=== PATIENT | male | born 1960 | race Caucasian/White ===

== ENCOUNTER 2019-07-19 09:57 | Emergency (ER) | payer OTHER ==
--- NOTE | 2019-07-19 09:59 | PDOC ---
History of Present Illness - General Chief Complaint: Pain Stated Complaint: RUQ PAIN, WITH BRUISE Time Seen by Provider: 07/19/19 09:59 - History of Present Illness Initial Comments: 07/19/19 10:36 59yo male with no pmhx other than diverticulitis in the past and diet controlled hld -no meds with RUQ pain x 2 days. States the pain started 2 nights ago. No assoc with food. Denies trauma. States pain assoc with diarrhea yesterday, and then constipation today. Pt states pain is also assoc with nausea , no vomiting. States this AM pain in the RUQ also with bruising. Pain is worse with movement, but denies falls, bumps, injury to the area. States he does drink socially - sometimes 2 drinks, sometimes more. Pt denies cp/sob. Pt with ttp over distal ribs on the R and under R ribs over gallbladder. Neg murphys. No other complaints. No coughing - though states he coughs all the time. Nonproductive cough - quit smoking 1 year ago, but uses e-cig daily. Pt denies cva ttp, denies urinary complaints. Pmhx: diverticulitis Pshx: denies allergies: lactose meds: sleeping pill at night Past History - Past Medical History Allergies/Adverse Reactions: Allergies Allergy/AdvReac Type Severity Reaction Status Date / Time No Known Allergies Allergy Verified 07/19/19 10:29 Home Medications: Ambulatory Orders Lorazepam 2 mg PO HS PRN 07/19/19 traZODone HCL [Trazodone HCl] 100 mg PO HS 07/19/19 Review of Systems - Review of Systems Able to Perform ROS?: Yes Is the patient limited [place] proficient: No Constitutional: No: Chills, Fever HEENTM: No: Nose Pain, Throat Pain Respiratory: Yes: Cough. No: Shortness of Breath, Productive cough Cardiac (ROS): No: Chest Pain ABD/GI: Yes: Diarrhea, Nausea, Other (RUQ pain). No: Abdominal Distended, Vomiting, Abdominal cramping : Yes: Flank Pain. No: Burning, Dysuria, Hematuria Musculoskeletal: No: Back Pain Integumentary: Yes: Bruising Neurological: No: Headache, Numbness All Other Systems: Reviewed and Negative *Physical Exam - Vital Signs 07/19/19 10:42 Selected Entries 07/19/19 09:58 Temperature 97.6 F Pulse Rate 62 Respiratory 20 Rate Blood Pressure 119/73 Blood Pressure 88 Mean O2 Sat by Pulse 99 Oximetry (%) Weight 74.843 kg - Physical Exam General Appearance: Yes: Nourished, Appropriately Dressed. No: Apparent Distress HEENT: positive: EOMI, Pharynx Normal Neck: positive: Supple Respiratory/Chest: positive: Lungs Clear, Normal Breath Sounds, Other (11th rib ttp at the tip). negative: Respiratory Distress Cardiovascular: positive: Regular Rhythm, Regular Rate, S1, S2. negative: Edema Gastrointestinal/Abdominal: positive: Normal Bowel Sounds, Tender (RUQ ttp, neg murphys), Soft, Other (bruising to RUQ) Musculoskeletal: positive: Normal Inspection. negative: CVA Tenderness Extremity: positive: Normal Capillary Refill, Normal Inspection, Normal Range of Motion, Other (ambulatory with a steady gait) Integumentary: positive: Dry, Warm, Bruising (RUQ ) Neurologic: positive: Fully Oriented, Alert, Motor Strength 02/09 ED Treatment Course - LABORATORY CBC & Chemistry Diagram: 07/19/19 10:59 07/19/19 11:04 Medical Decision Making - Medical Decision Making 07/19/19 10:43 59yo male with RUQ pain and bruising -denies trauma -bedside ultrasound of the RUQ neg for gallstones or FF in morison's pouch -ttp over distal ribs, pt is coughing -bruising to upper abd -concern for intraabd bleeding not seen on ultrasound vs pancreatitis vs broken rib vs pna -will send labs, cxr, ct abd/pelvis -will hydrate -will give tylenol for pain -will send ua -will monitor and reassess -pt is nontoxic in appearance 07/19/19 10:54 ua neg cxr clear 07/19/19 11:15 no elevated wbc hgb stable inr stable 07/19/19 11:26 mildly elevated bun, ivf hydration running 07/19/19 12:25 pt resting comfortably discussed labs and cxr findings pending ct read and lipase 07/19/19 12:30 lipase neg 07/19/19 12:55 no acute findings on ct discussed ct findings given toradol and feels better discussed tylenol or motrin at home discussed smoking cessation pt now states he was leaning over his boat engine and crushed his glasses against his R side- suspect cause of pain pt ambulatory with a steady gait stable for dc to home Discharge - Discharge Information Problems reviewed: Yes Clinical Impression/Diagnosis: Right flank pain, Encounter for smoking cessation counseling Condition: Stable Disposition: HOME - Admission No - Follow up/Referral Referrals: dr. david [Other] - Patient Discharge Instructions Patient Printed Discharge Instructions: DI for Flank Pain, How to Quit Smoking Additional Instructions: Please take tylenol or motrin as needed for pain. Please follow up with your PMD. Please stop smoking. Please return to the ED with any further concerns or complaints. - Post Discharge Activity
[2019-07-19 10:20] VITALS: BP 119/73; PULSE 62; TEMP 97.6; BMI 25.8
[2019-07-19] MEDS ORDERED: SODIUM CHLORIDE 0.9% 1000 ML INFUS.BAG IV ONE (10:30)
[2019-07-19] MEDS ORDERED: ACETAMINOPHEN 1000 MG/100 ML VIAL (NON FORMULARY) IVPB ONE (10:31)
[2019-07-19] MEDS ORDERED: ACETAMINOPHEN INJECTION 100 ML IVPB ONE (10:41)
[2019-07-19 11:02] LABS: BASO % 1.4 % (0-2.0); HEMATOCRIT 45.3 % (35.4-49); HEMOGLOBIN 15.3 GM/dl (11.7-16.9); LYMPH % 26.1 % (8-40); MCH 32.8 pg (25.7-33.7); MCHC 33.8 g/dl (32.0-35.9); MEAN PLT VOLUME 7.6 fl (7.5-11.1); MONO % 10.4 % (3.8-10.2); NEUT % 60.1 % (42.8-82.8); PLATELET COUNT 326 K/MM3 (134-434); RBC 4.67 M/mm3 (4.00-5.60); RDW 12.9 % (11.9-15.9); WHITE BLOOD COUNT 7.6 K/mm3 (4.0-10.8)
[2019-07-19 11:10] LABS: INR 0.96 (0.82-1.09); PROTHROMBIN TIME (PATIENT) 10.8 SEC (10.2-13.0)
[2019-07-19 11:14] LABS: BILIRUBIN,TOTAL 0.6 mg/dl (0.2-1); CALCIUM 8.7 mg/dl (8.5-10); CREATININE 1.2 mg/dl (0.55-1.3); POTASSIUM 4.4 mmol/L (3.5-5.1); TOT PROT 6.7 g/dl (6.4-8.2)
[2019-07-19] MEDS ORDERED: ONDANSETRON 4 MG/2 ML VIAL IVPUSH ONE (12:21)
[2019-07-19] MEDS ORDERED: ONDANSETRON 4 MG/2 ML VIAL ONE (12:22)
[2019-07-19] MEDS ORDERED: KETOROLAC TROMETHAMINE 15 MG/ML VIAL IVPUSH ONE (12:45)
[2019-07-19] MEDS ORDERED: KETOROLAC TROMETHAMINE 15 MG/ML VIAL ONE (12:50)
== END 2019-07-19 13:01 | disposition home or self-care (01) ==
LOC: FER 09:57
PROC: 3E033NZ Introduction of Analgesics, Hypnotics, Sedatives into Peripheral Vein, Percutaneous Approach (ICD-10-PCS; principal; 2019-07-19)
PROC: 3E0333Z Introduction of Anti-inflammatory into Peripheral Vein, Percutaneous Approach (ICD-10-PCS; 2019-07-19)
PROC: 3E033GC Introduction of Other Therapeutic Substance into Peripheral Vein, Percutaneous Approach (ICD-10-PCS; 2019-07-19)
PROC: 3E0337Z Introduction of Electrolytic and Water Balance Substance into Peripheral Vein, Percutaneous Approach (ICD-10-PCS; 2019-07-19)
DX: R10.31 Right lower quadrant pain (principal); Z71.6 Tobacco abuse counseling; K57.92 Diverticulitis of intestine, part unspecified, without perforation or abscess without bleeding; E78.5 Hyperlipidemia, unspecified
CPT/HCPCS: 36415; 71046-TC-FY; 74177-TC; 80053; 81003; 83690; 85025; 85610; 85730; 99284-25; J0131; J7030

== ENCOUNTER 2024-01-20 09:50 | Emergency (ER) | payer OTHER ==
[2024-01-20 10:17] VITALS: BP 147/92; PULSE 77; RESP 16; TEMP 97.9; BMI 27.0
[2024-01-20] MEDS ORDERED: predniSONE 20 MG TABLET (UD) ONE (11:04)
[2024-01-20] MEDS: predniSONE 20 MG TABLET (UD) PO ONE (11:06)
== END 2024-01-20 11:10 | disposition home or self-care (01) ==
LOC: FER 09:50
DX: R21 Rash and other nonspecific skin eruption (principal)
CPT/HCPCS: 99283-25